=== PATIENT | female | born 1985 | race Caucasian/White ===

== ENCOUNTER 2024-05-30 14:57 | Outpatient (REF) | payer OTHER, SELFPAY ==
[2024-05-30 17:59] LABS: FREE T4 0.84 ng/dL (0.76-1.46)
== END 2024-05-30 14:58 | disposition home or self-care (01) ==
LOC: NCHCN 14:57
PROVIDERS: PCP Family Medicine; Visit Provider Nurse Practitioner Family
DX: E03.9 Hypothyroidism, unspecified (principal)
CPT/HCPCS: 84439; 84443